=== PATIENT | male | born 1975 | race African-American/Black ===

== ENCOUNTER 2016-11-11 10:31 | Inpatient (IN) | payer OTHER ==
[2016-11-11 11:53] VITALS: BMI 24.3
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
[2016-11-11] MEDS ORDERED: chlordiazePOXIDE HCL 25 MG CAPSULE PO ONE (15:43)
[2016-11-11] MEDS ORDERED: guaiFENesin/D-METHORPHAN HB 10 ML UNIT-DOSE CUPS PO PRN (15:43)
[2016-11-11] MEDS ORDERED: ACETAMINOPHEN 325 MG TABLET (FP) PO PRN (15:43)
[2016-11-11] MEDS ORDERED: hydrOXYzine PAMOATE 50 MG CAPSULE (FP) PO PRN (15:43)
[2016-11-11] MEDS ORDERED: LOPERAMIDE HCL 2 MG CAPSULE PO PRN (15:43)
[2016-11-11] MEDS ORDERED: MAG HYDROX/AL HYDROX/SIMETH 30 ML UNIT-DOSE CUP PO PRN (15:43)
[2016-11-11] MEDS ORDERED: P-EPHED 60MG/TRIPROLIDI 2.5MG TABLET PO PRN (15:43)
[2016-11-11] MEDS ORDERED: diphenhydrAMINE HCL 50 MG CAPSULE PO PRN (15:43)
[2016-11-11] MEDS ORDERED: MENTHOL/PHENOL 1 EACH UD MM PRN (15:43)
[2016-11-11] MEDS ORDERED: MAGNESIUM CITRATE 300 ML BOTTLE PO PRN (15:43)
[2016-11-11] MEDS ORDERED: MAGNESIUM HYDROX 2400MG/30ML ORAL SUSPENSION 30 ML CUP PO PRN (15:43)
[2016-11-11] MEDS ORDERED: chlordiazePOXIDE HCL 25 MG CAPSULE PO PRN (15:43)
[2016-11-11] MEDS ORDERED: IBUPROFEN 400 MG TABLET (FP) PO PRN (15:43)
[2016-11-11] MEDS: chlordiazePOXIDE HCL 25 MG CAPSULE PO SCH ×2 (17:29→22:35)
[2016-11-11 18:55] LABS: URINE APPEARANCE CLEAR; URINE BILIRUBIN NEGATIVE (NEGATIVE); URINE BLOOD NEGATIVE (NEGATIVE); URINE COLOR YELLOW; URINE GLUCOSE (UA) NEGATIVE (NEGATIVE); URINE KETONE NEGATIVE (NEGATIVE); URINE LEUK ESTERASE NEGATIVE (NEGATIVE); URINE NITRITE NEGATIVE (NEGATIVE); URINE UROBILINOGEN NEGATIVE E.U./dl (0.2-1.0)
[2016-11-11 19:11] LABS: URINE PROTEIN 2+ (NEGATIVE)
[2016-11-11 19:14] LABS: URINE MUCUS RARE; URINE RBC 1 /hpf (0-3); URINE WBC 1 /hpf (3-5)
[2016-11-11] MEDS: THIAMINE HCL 100 MG TABLET (FP) PO SCH (22:35)
[2016-11-12] MEDS: chlordiazePOXIDE HCL 25 MG CAPSULE PO SCH ×4 (05:36→22:10)
[2016-11-12 10:09] LABS: MCH 29.6 pg (25.7-33.7); MCHC 32.9 g/dl (32.0-35.9); MEAN PLT VOLUME 9.2 fl (7.5-11.1); PLATELET COUNT 226 K/MM3 (134-434); RDW 14.2 % (11.9-15.9); WHITE BLOOD COUNT 6.1 K/mm3 (4.0-10.0)
[2016-11-12] MEDS: PRENATAL VITAMINS W/ FOLIC ACID TABLET (FP) PO SCH (10:59)
[2016-11-12 11:23] LABS: ALBUMIN 4.2 g/dl (3.4-5.0); ALK PHOS 80 U/L (45-117); ANION GAP 8 (8-16); BILIRUBIN,TOTAL 0.4 mg/dL (0.2-1.0); CALCIUM 9.4 mg/dL (8.5-10.1); CO2 30 mmol/L (21-32); COCKROFT - GAULT 83.99; CREATININE 1.2 mg/dL (0.7-1.3); GLUCOSE,RANDOM 84 mg/dL (74-106); SGOT/AST 21 U/L (15-37); SGPT/ALT 22 U/L (12-78); TOT PROT 8.2 g/dl (6.4-8.2)
--- NOTE | 2016-11-12 11:39 | PN ---
[facility] CIWA - CIWA Score Nausea/Vomitin Muscle Tremors: 3 Anxiety: 3 Agitation: 2 Paroxysmal Sweats: 1-Minimal Palms Moist Orientation: 0-Oriented Tacttile Disturbances: 1-Very Mild Itch/Numbness Auditory Disturbances: 1-Very Mild Visual Disturbances: 1-Very Mild Sensitivity Headache: 2-Mild CIWA-Ar Total Score: 17 S Progress Note (SOAP) Subjective: ALERT,IRRITABLE,ANXIOUS,INTERRUPTED SLEEP,TREMOR Objective: 11/12/16 11:37 Vital Signs Temperature 98.6 F 11/12/16 10:40 Pulse Rate 90 11/12/16 10:40 Respiratory Rate 20 11/12/16 10:40 Blood Pressure 146/87 11/12/16 10:40 O2 Sat by Pulse Oximetry (%) EKG NSR WITH SINUS ARRHYTHMIA Laboratory Last Values WBC 6.1 K/mm3 (4.0-10.0) 11/12/16 06:00 RBC 4.88 M/mm3 (4.00-5.60) 11/12/16 06:00 Hgb 14.5 GM/dL (11.7-16.9) 11/12/16 06:00 Hct 43.9 % (35.4-49) 11/12/16 06:00 MCV 90.0 fl (80-96) 11/12/16 06:00 MCHC 32.9 g/dl (32.0-35.9) 11/12/16 06:00 RDW 14.2 % (11.9-15.9) 11/12/16 06:00 Plt Count 226 K/MM3 (134-434) 11/12/16 06:00 MPV 9.2 fl (7.5-11.1) 11/12/16 06:00 Sodium 140 mmol/L (136-145) 11/12/16 06:00 Potassium 4.2 mmol/L (3.5-5.1) 11/12/16 06:00 Chloride 102 mmol/L (98-107) 11/12/16 06:00 Carbon Dioxide 30 mmol/L (21-32) 11/12/16 06:00 Anion Gap 8 (8-16) 11/12/16 06:00 BUN 13 mg/dL (7-18) 11/12/16 06:00 Creatinine 1.2 mg/dL (0.7-1.3) 11/12/16 06:00 Creat Clearance w eGFR > 60 (>60) 11/12/16 06:00 Random Glucose 84 mg/dL (74-106) 11/12/16 06:00 Calcium 9.4 mg/dL (8.5-10.1) 11/12/16 06:00 Total Bilirubin 0.4 mg/dL (0.2-1.0) 11/12/16 06:00 AST 21 U/L (15-37) 11/12/16 06:00 ALT 22 U/L (12-78) 11/12/16 06:00 Alkaline Phosphatase 80 U/L (45-117) 11/12/16 06:00 Total Protein 8.2 g/dl (6.4-8.2) 11/12/16 06:00 Albumin 4.2 g/dl (3.4-5.0) 11/12/16 06:00 Urine Color Yellow 11/11/16 17:51 Urine Appearance Clear 11/11/16 17:51 Urine pH 5.0 (5.0-8.0) 11/11/16 17:51 Urine Protein 2+ (NEGATIVE) H 11/11/16 17:51 Urine Glucose (UA) Negative (NEGATIVE) 11/11/16 17:51 Urine Ketones Negative (NEGATIVE) 11/11/16 17:51 Urine Blood Negative (NEGATIVE) 11/11/16 17:51 Urine Nitrite Negative (NEGATIVE) 11/11/16 17:51 Urine Bilirubin Negative (NEGATIVE) 11/11/16 17:51 Urine Urobilinogen Negative E.U./dl (0.2-1.0) 11/11/16 17:51 Ur Leukocyte Esterase Negative (NEGATIVE) 11/11/16 17:51 Urine RBC 1 /hpf (0-3) 11/11/16 17:51 Urine WBC 1 /hpf (3-5) 11/11/16 17:51 Ur Epithelial Cells Rare /hpf (FEW) 11/11/16 17:51 Urine Mucus Rare 11/11/16 17:51 RPR Titer Nonreactive (NONREACTIVE) 11/12/16 06:00 Assessment: 11/12/16 11:39 WITHDRAWAL SYMPTOM Plan: CONTINUE DETOX
--- NOTE | 2016-11-12 12:01 | EKG ---
Test Reason : Blood Pressure : / mmHG Vent. Rate : 070 BPM Atrial Rate : 070 BPM P-R Int : 156 ms QRS Dur : 088 ms QT Int : 384 ms P-R-T Axes : 050 059 050 degrees QTc Int : 414 ms NORMAL SINUS RHYTHM WITH SINUS ARRHYTHMIA NORMAL ECG NO PREVIOUS ECGS AVAILABLE Confirmed by MANDY GONZALEZ, REDD ([id number]) on 11/12/2016 12:00:52 PM Referred By: JENNIFER Poe Confirmed By:REDD GALVAN MD
[2016-11-12] MEDS: THIAMINE HCL 100 MG TABLET (FP) PO SCH (22:10)
[2016-11-13] MEDS: chlordiazePOXIDE HCL 25 MG CAPSULE PO SCH ×2 (05:31→10:51)
[2016-11-13] MEDS: PRENATAL VITAMINS W/ FOLIC ACID TABLET (FP) PO SCH (10:50)
--- NOTE | 2016-11-13 11:54 | PN ---
[facility] CIWA - CIWA Score Nausea/Vomitin Muscle Tremors: 3 Anxiety: 2 Agitation: 2 Paroxysmal Sweats: 1-Minimal Palms Moist Orientation: 0-Oriented Tacttile Disturbances: 1-Very Mild Itch/Numbness Auditory Disturbances: 1-Very Mild Visual Disturbances: 1-Very Mild Sensitivity Headache: 2-Mild CIWA-Ar Total Score: 16 S Progress Note (SOAP) Subjective: ALERT,IRRITABLE,ANXIOUS,INTERRUPTED SLEEP,TREMOR Objective: 11/13/16 11:53 Vital Signs Temperature 97.7 F 11/13/16 06:00 Pulse Rate 82 11/13/16 10:05 Respiratory Rate 18 11/13/16 10:05 Blood Pressure 152/91 11/13/16 10:05 O2 Sat by Pulse Oximetry (%) Laboratory Last Values WBC 6.1 K/mm3 (4.0-10.0) 11/12/16 06:00 RBC 4.88 M/mm3 (4.00-5.60) 11/12/16 06:00 Hgb 14.5 GM/dL (11.7-16.9) 11/12/16 06:00 Hct 43.9 % (35.4-49) 11/12/16 06:00 MCV 90.0 fl (80-96) 11/12/16 06:00 MCHC 32.9 g/dl (32.0-35.9) 11/12/16 06:00 RDW 14.2 % (11.9-15.9) 11/12/16 06:00 Plt Count 226 K/MM3 (134-434) 11/12/16 06:00 MPV 9.2 fl (7.5-11.1) 11/12/16 06:00 Sodium 140 mmol/L (136-145) 11/12/16 06:00 Potassium 4.2 mmol/L (3.5-5.1) 11/12/16 06:00 Chloride 102 mmol/L (98-107) 11/12/16 06:00 Carbon Dioxide 30 mmol/L (21-32) 11/12/16 06:00 Anion Gap 8 (8-16) 11/12/16 06:00 BUN 13 mg/dL (7-18) 11/12/16 06:00 Creatinine 1.2 mg/dL (0.7-1.3) 11/12/16 06:00 Creat Clearance w eGFR > 60 (>60) 11/12/16 06:00 Random Glucose 84 mg/dL (74-106) 11/12/16 06:00 Calcium 9.4 mg/dL (8.5-10.1) 11/12/16 06:00 Total Bilirubin 0.4 mg/dL (0.2-1.0) 11/12/16 06:00 AST 21 U/L (15-37) 11/12/16 06:00 ALT 22 U/L (12-78) 11/12/16 06:00 Alkaline Phosphatase 80 U/L (45-117) 11/12/16 06:00 Total Protein 8.2 g/dl (6.4-8.2) 11/12/16 06:00 Albumin 4.2 g/dl (3.4-5.0) 11/12/16 06:00 Urine Color Yellow 11/11/16 17:51 Urine Appearance Clear 11/11/16 17:51 Urine pH 5.0 (5.0-8.0) 11/11/16 17:51 Ur Specific [place] >= 1.030 (1.005-1.025) H 11/11/16 17:51 Urine Protein 2+ (NEGATIVE) H 11/11/16 17:51 Urine Glucose (UA) Negative (NEGATIVE) 11/11/16 17:51 Urine Ketones Negative (NEGATIVE) 11/11/16 17:51 Urine Blood Negative (NEGATIVE) 11/11/16 17:51 Urine Nitrite Negative (NEGATIVE) 11/11/16 17:51 Urine Bilirubin Negative (NEGATIVE) 11/11/16 17:51 Urine Urobilinogen Negative E.U./dl (0.2-1.0) 11/11/16 17:51 Ur Leukocyte Esterase Negative (NEGATIVE) 11/11/16 17:51 Urine RBC 1 /hpf (0-3) 11/11/16 17:51 Urine WBC 1 /hpf (3-5) 11/11/16 17:51 Ur Epithelial Cells Rare /hpf (FEW) 11/11/16 17:51 Urine Mucus Rare 11/11/16 17:51 RPR Titer Nonreactive (NONREACTIVE) 11/12/16 06:00 Assessment: 11/13/16 11:53 WITHDRAWAL SYMPTOM Plan: CONTINUE DETOX
[2016-11-13] MEDS: chlordiazePOXIDE 5 MG CAPSULE PO SCH ×2 (20:32→22:10)
[2016-11-13] MEDS: THIAMINE HCL 100 MG TABLET (FP) PO SCH (22:10)
[2016-11-14] MEDS: chlordiazePOXIDE 5 MG CAPSULE PO SCH (07:54)
[2016-11-14 09:41] VITALS: BP 119/91; PULSE 110; TEMP 97.8
[2016-11-14] MEDS: PRENATAL VITAMINS W/ FOLIC ACID TABLET (FP) PO SCH (10:52)
--- NOTE | 2016-11-14 11:05 | PN ---
S Progress Note (SOAP) Subjective: ALERT,INTERRUPTED SLEEP Objective: 11/14/16 11:04 Vital Signs Temperature 97.8 F 11/14/16 09:40 Pulse Rate 110 H 11/14/16 09:40 Respiratory Rate 18 11/14/16 09:40 Blood Pressure 119/91 11/14/16 09:40 O2 Sat by Pulse Oximetry (%) Assessment: 11/14/16 11:05 WITHDRAWAL SYMPTOM Plan: CONTINUE DETOX,DISCHARGE IN AM
--- NOTE | 2016-11-14 11:19 | PN ---
S Progress Note Note: ADDENDUM PATIENT IS STABLE,NO WITHDRAWAL SYMPTOM,STABLE FOR DISCHARGE ,FOLLOW UP WITH AFTER CARE PROGRAM ARRANGEMENT ,SEEN BY COUNSELOR
--- NOTE | 2016-11-14 11:21 | DS ---
[facility] Detox Discharge Summary Admission Date: 11/11/16 Discharge Date: 11/14/16 - History Present History: Alcohol Dependence Additional Comments: FOLLOW UP WITH AFTER CARE PROGRAM ARRANGEMENT - Physical Exam Results Vital Signs: Vital Signs Temperature 97.8 F 11/14/16 09:40 Pulse Rate 110 H 11/14/16 09:40 Respiratory Rate 18 11/14/16 09:40 Blood Pressure 119/91 11/14/16 09:40 O2 Sat by Pulse Oximetry (%) Pertinent Admission Physical Exam Findings: WITHDRAWAL SYMPTOM - Treatment Hospital Course: Detox Protocol Followed, Detoxed Safely, Responded well, Discharged Condition Good Patient has Accepted a Rehab Referral to: DECLINED - Medication Discharge Medications: Ambulatory Orders NK [No Known Home Medication] 11/11/16 - Diagnosis (1) Alcohol dependence with uncomplicated withdrawal Current Visit: Yes Status: Chronic - AMA Did Patient Leave Against Medical Advice: No
[2016-11-14] MEDS ORDERED: chlordiazePOXIDE HCL 10 MG CAPSULE PO SCH (17:00)
== END 2016-11-14 11:31 | disposition home or self-care (01) | DRG 897 ==
LOC: YASAS 10:31 → Y6N 15:46
PROVIDERS: ADMIT Internal Medicine; ATTEND Internal Medicine
PROC: HZ2ZZZZ Detoxification Services for Substance Abuse Treatment (ICD-10-PCS; principal; 2016-11-14)
DX: F10.230 Alcohol dependence with withdrawal, uncomplicated (principal)
CPT/HCPCS: 36415; 80053; 81003; 81015; 85027; 86593; 93005; 93010

== ENCOUNTER 2017-01-01 07:51 | Emergency (ER) | payer OTHER ==
[2017-01-01 07:57] VITALS: BP 150/104; PULSE 87; TEMP 99.1; BMI 23.6
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
[2017-01-01] MEDS ORDERED: IBUPROFEN 400 MG TABLET (FP) PO ONE ×2 (09:05→09:10)
== END 2017-01-01 09:20 | disposition home or self-care (01) ==
LOC: FER 07:51
DX: S83.92XA Sprain of unspecified site of left knee, initial encounter (principal); V09.20XA Pedestrian injured in traffic accident involving unspecified motor vehicles, initial encounter; Y93.89 Activity, other specified; Y92.410 Unspecified street and highway as the place of occurrence of the external cause; Z87.891 Personal history of nicotine dependence
CPT/HCPCS: 73560-TC-LT; 99281-25

== ENCOUNTER 2017-01-22 06:05 | Day surgery (SDC) | payer OTHER ==
[2017-01-20 10:55] VITALS: BMI 22.8
--- NOTE | 2017-01-22 09:03 | HP ---
Satellite [facility] - Chief Complaint Chief Complaint: left knee pain/instability - Past Medical History Allergies/Adverse Reactions: Allergies Allergy/AdvReac Type Severity Reaction Status Date / Time No Known Allergies Allergy Verified 01/20/17 10:49 - Current Medications Current Medications: Home Medications Medication Instructions Recorded Oxycodone HCl/Acetaminophen 1 - 2 tab PO Q6H #50 tab MDD 8 01/22/17 [Percocet 5-325 mg Tablet -] Satellite Physical Exam - Physical Examination Vital Signs: Vital Signs Period Temp Pulse Resp BP Sys/K[place]ns Pulse Ox Last 24 Hr 98.2 F 92 20 109/79 100 General Appearance: Well Nourished, Well Developed, Alert & Oriented x3 ENT: Clear Lung: Normal air movement Heart: Regular rate & rhythm Extremities: Other (left knee- + swelling, + ttp, + vince, + ant draw, + pivot , nvi MRI + acl and mmt, lmt) Neurological: Intact, Alert, Oriented Satellite Impression/Plan - Impression/Plan Impression: left knee internal derangement Operative Procedure: left knee arthrscopy ACL reconstruction with allograft, PMM , PLM Date to be Performed: 01/22/17
[2017-01-22] MEDS ORDERED: DEXAMETHASONE SOD PHOSPHATE/PF 10 MG/ML SDV ONE (09:13)
[2017-01-22] MEDS ORDERED: BUPIVACAINE HCL/PF 0.25% (2.5MG/ML) 10 ML VIAL ONE (09:13)
[2017-01-22] MEDS ORDERED: BUPIVACAINE HCL/PF 0.5% (5MG/ML) 10 ML VIAL ONE (09:13)
[2017-01-22] MEDS ORDERED: MIDAZOLAM HCL 2 MG/2 ML SINGLE DOSE VIAL ONE ×2 (09:15)
[2017-01-22] MEDS ORDERED: ceFAZolin SODIUM 1 GM VIAL ONE ×2 (10:16→13:53)
[2017-01-22] MEDS ORDERED: ceFAZolin SODIUM 1 GM VIAL IVPB ONE ×2 (10:20→15:50)
[2017-01-22] MEDS ORDERED: DEXAMETHASONE SOD PHOSPHATE 4 MG/1 ML VIAL ONE (10:40)
[2017-01-22] MEDS ORDERED: LACTATED RINGERS SOLUTION 1,000 ML IV SCH (11:00)
[2017-01-22] MEDS ORDERED: ONDANSETRON 4 MG/2 ML VIAL IVPUSH PRN (11:00)
[2017-01-22] MEDS ORDERED: oxyCODONE HCL 5 MG TABLET PO PRN (11:00)
--- NOTE | 2017-01-22 11:22 | OP ---
Operative Note - Note: Operative Date: 01/22/17 ([facility]) Pre-Operative Diagnosis: left knee internal derangement Operation: left knee arthroscopy with ACL reconstruction using allograft, PMM, PLM, debridement chondroplasty [facility] [place]: arthrex graftlink Post-Operative Diagnosis: Same as Pre-op Surgeon: Chance Bauer Semiautomatic Taper Operator: Ramy Dubon Anesthesiologist/APPLICATIONS CONSULTANT: India Evans Anesthesia: Spinal, Local Specimens Removed: shavings Estimated Blood Loss (mls): 10 Operative Report Dictated: Yes
[2017-01-22 11:49] VITALS: TEMP 97.8
[2017-01-22] MEDS ORDERED: CEFAZOLIN 1 GM in DEXTROSE 5%-WATER - 50 ML IVPB ONE (12:00)
[2017-01-22] MEDS ORDERED: oxyCODONE HCL 5 MG TABLET ONE (14:27)
[2017-01-22] MEDS ORDERED: oxyCODONE HCL 5 MG TABLET PO ONE (14:33)
[2017-01-22 18:54] VITALS: BP 146/85; PULSE 73
--- NOTE | 2017-01-23 08:20 | OP ---
DATE OF OPERATION: 01/22/2017 PREOPERATIVE DIAGNOSIS: Left anterior cruciate ligament tear. POSTOPERATIVE DIAGNOSIS: Left anterior cruciate ligament tear, plus lateral meniscus tear, medial meniscus tear, and degenerative joint disease medial femoral condyle, medial tibial plateau. lateral femoral condyle . SURGICAL PROCEDURE: Left anterior cruciate ligament reconstruction with GraftLink, partial medial and lateral meniscectomies, and chondroplasty, medial femoral condyle, medial tibial plateau, and lateral femoral condyle. SURGICAL ATTENDING: Chance Bauer M.D. MICA PLATE LAYER: HUGH Vallecillo ANESTHESIA: Spinal and regional. CLOSURE: A GraftLink with appropriate buttons for fixation, 3-0 nylon for skin. ESTIMATED BLOOD LOSS: Negligible. COMPLICATIONS: None. CONDITION: To recovery room in stable condition. DESCRIPTION OF OPERATIVE PROCEDURE: The patient was taken to the operating room on January 22, 2017. Spinal and region anesthesia were administered by the anesthesiologist. IV Kefzol was given prophylactically prior to the case. Left lower extremity was prepped and draped in the usual sterile fashion. The superolateral and mediolateral and infrapatellar portal sites were made with a 15 blade followed by a blunt trocar. The scope was placed lateral infrapatellar suprapatellar pouch. Pouch was visualized to be clean. The medial and lateral gutters were visualized to be clean. The undersurface of the patella and trochlea were visualized to be intact. With valgus stress on the knee, the medial compartment was entered and medial meniscus was visualized and probed and found to have a flap tear of its posterior horn. This was debrided back to smooth stable meniscal tissues with a meniscal biter and an arthroscopic shaver. Running the medial femoral condyle, we found a large grade 4 lesion, and it was articular cartilage surround the lesion. It was debrided using the shaver. The medial tibial plateau was found to be basically intact. With valgus stress on the knee, the lateral compartment was entered. Lateral meniscus had an extensive complex tear extending from its mid portion all the way posteriorly. It was debrided back to smooth, stable meniscal tissues with meniscal biter and arthroscopic shaver. The lateral femoral condyle was run and found to have found a large grade 4 lesion, as well, with some loose articular cartilage and some loose bodies flaking off the condyle. These were debrided using the shaver. At 90 degrees, the PCL was found to be intact. The ACL was found to have a large stump anteriorly. This was debrided using the shaver. A notchplasty was then performed using the shaver and the ArthroCare device until the appropriate width and height of the notch was obtained. The GraftLink was prepared on the back table with the appropriate button and markings. Using the [id number] guide and a FlipCutter, a retrograde femoral tunnel was made 10 mm in diameter in the appropriate aspect of the posterior notch. Passing through this tunnel, we passed a FiberWire suture and pulled through the anteromedial portal for later use as a shuttle suture. The same was then performed on the tibial side just anterior to the PCL. A 10-mm FlipCutter was used to retrograde the femoral tunnel, leaving the lateral outside cortex intact. Passing up through this tunnel was a FiberWire suture. Both sutures were delivered to the anteromedial portal. They were then used to shuttle the graft into the knee with pulling the femoral side up the femoral tunnel until the button caught on the lateral cortex. The toggle sutures were then used to pull the graft into the femoral tunnel up to the appropriate interval. Shuttle sutures were then used to pull the tibial side of the graft into the tibial tunnel exiting distally. Button was deployed, and the toggle sutures were then used to fixate the graft there, as well. The knee was taken through a range of motion, found to have good stability, negative Christopher, anterior/posterior drawer. Sutures were cut snug. Portals were closed with 3-0 nylon suture. Sterile pressure dressing was applied. Patient was awakened from anesthesia and transferred to recovery room in stable condition. No complications. Estimated blood loss was negligible. Andre [id number]
--- NOTE | 2017-01-23 14:24 | PATH ---
Surgical Pathology Report Patient Name: NINA RAMIREZ Med. Rec. #: [id number] /Age/Gender: 1975 (Age: 41) / M Account: [id number] Location: [facility] Taken: 01/22/2017 Received: 01/22/2017 Reported: 01/23/2017 Physicians: Chance Bauer M.D. Specimen(s) Received LEFT KNEE SHAVINGS Clinical History Left ACL tear Final Diagnosis SOFT TISSUE, LEFT KNEE, ARTHROSCOPIC SHAVINGS: SYNOVIUM AND FIBROCARTILAGE WITH MYXOHYALINE DEGENERATION. FRAGMENTS OF UNREMARKABLE BONE. Electronically Signed Michael Callaway M.D. Gross Description Received in formalin, labeled "left knee shavings" is a 6.3 x 5.0 x 0.8 cm aggregate of m[place]o-yellow soft tissue fragments. A patient financial representative portion is submitted in one cassette. /01/22/201701/22/2017
== END 2017-01-22 18:10 | disposition home or self-care (01) ==
LOC: JASU-SURG 06:05
PROVIDERS: ATTEND Orthopaedic Surgery
PROC: 0SBD4ZZ Excision of Left Knee Joint, Percutaneous Endoscopic Approach (ICD-10-PCS; 2017-01-22)
PROC: 0SBD4ZZ Excision of Left Knee Joint, Percutaneous Endoscopic Approach (ICD-10-PCS; 2017-01-22)
PROC: 0SBD4ZZ Excision of Left Knee Joint, Percutaneous Endoscopic Approach (ICD-10-PCS; 2017-01-22)
PROC: 0MQP4ZZ Repair Left Knee Bursa and Ligament, Percutaneous Endoscopic Approach (ICD-10-PCS; principal; 2017-01-22 10:15)
DX: S83.512A Sprain of anterior cruciate ligament of left knee, initial encounter (principal); S83.282A Other tear of lateral meniscus, current injury, left knee, initial encounter; S83.242A Other tear of medial meniscus, current injury, left knee, initial encounter; M17.12 Unilateral primary osteoarthritis, left knee; X58.XXXA Exposure to other specified factors, initial encounter; Y93.9 Activity, unspecified; Y92.9 Unspecified place or not applicable
CPT/HCPCS: 29880; 29888; G0289; 88304-TC; 94760

== ENCOUNTER 2017-07-23 05:02 | Day surgery (SDC) | payer OTHER ==
[2017-07-22 11:53] VITALS: BMI 24.3
--- NOTE | 2017-07-23 09:16 | HP ---
Satellite [facility] - Chief Complaint Chief Complaint: left knee pain, stiffness - Past Medical History Allergies/Adverse Reactions: Allergies Allergy/AdvReac Type Severity Reaction Status Date / Time No Known Allergies Allergy Verified 07/22/17 11:54 - Current Medications Current Medications: Home Medications Medication Instructions Recorded Oxycodone HCl/Acetaminophen 1 tab PO Q6H #20 tab MDD 4 07/23/17 [Percocet 5-325 mg Tablet -] Satellite Physical Exam - Physical Examination General Appearance: Well Nourished, Well Developed, Alert & Oriented x3 ENT: Clear Lung: Normal air movement Heart: Regular rate & rhythm Neurological: Intact, Alert, Oriented Satellite Impression/Plan - Impression/Plan Impression: left knee arthrofibrosis Operative Procedure: left knee GALO, possible arthroscopy Date to be Performed: 07/23/17
[2017-07-23] MEDS ORDERED: MIDAZOLAM HCL 2 MG/2 ML SINGLE DOSE VIAL ONE (09:20)
[2017-07-23] MEDS ORDERED: PROPOFOL 20 ML ONE (09:20)
[2017-07-23] MEDS ORDERED: BUPIVACAINE HCL/PF 0.5% (5MG/ML) 10 ML VIAL ONE (09:25)
[2017-07-23] MEDS ORDERED: LIDOCAINE 1%/EPI 1:100000 (20 ML MULTI DOSE VIAL) ONE (09:28)
[2017-07-23] MEDS ORDERED: DEXAMETHASONE SOD PHOSPHATE 4 MG/1 ML VIAL ONE (12:05)
[2017-07-23] MEDS ORDERED: ceFAZolin SODIUM 1 GM VIAL ONE (12:12)
[2017-07-23] MEDS ORDERED: LIDOCAINE 1%/EPI 1:100000 (20 ML MULTI DOSE VIAL) IJ ONE (12:25)
[2017-07-23] MEDS ORDERED: BUPIVACAINE HCL/PF 0.5% (5MG/ML) 10 ML VIAL IJ ONE (12:25)
[2017-07-23] MEDS ORDERED: ceFAZolin SODIUM 1 GM VIAL IVPB ONE (12:30)
--- NOTE | 2017-07-23 12:41 | OP ---
Operative Note - Note: Operative Date: 07/23/17 ([facility]) Pre-Operative Diagnosis: left knee arthrofibrosis Operation: left knee arthroscopy, GALO Post-Operative Diagnosis: Same as Pre-op Surgeon: Chance Bauer Anesthesiologist/WORKFLOW DEVELOPER: Mike Spicer Anesthesia: General, Local Specimens Removed: shavings Estimated Blood Loss (mls): 5 Operative Report Dictated: Yes
[2017-07-23] MEDS ORDERED: oxyCODONE HCL 5 MG TABLET PO PRN ×2 (13:47)
[2017-07-23] MEDS ORDERED: ONDANSETRON 4 MG/2 ML VIAL IVPUSH PRN (13:47)
[2017-07-23] MEDS ORDERED: LACTATED RINGERS SOLUTION 1,000 ML IV SCH (14:00)
[2017-07-23 14:57] VITALS: TEMP 98.6
[2017-07-23 15:49] VITALS: BP 135/88; PULSE 78
--- NOTE | 2017-07-24 07:43 | OP ---
DATE OF OPERATION: 07/23/2017 PREOPERATIVE DIAGNOSIS: Arthrofibrosis status post anterior cruciate ligament reconstruction, left knee. POSTOPERATIVE DIAGNOSIS: Arthrofibrosis status post anterior cruciate ligament reconstruction, left knee. PROCEDURE: Manipulation under anesthesia and arthroscopic debridement of left knee. SURGICAL ATTENDING: Chance Bauer MD ANESTHESIA: General with LMA. CLOSURE: 4-0 nylon COMPLICATIONS: None. CONDITION: To recovery room in stable condition. DESCRIPTION OF PROCEDURE: Patient taken to the operating room on July 23, 2017. General anesthesia with LMA was administered by the anesthesiologist. A manipulation under anesthesia was performed. Prior to manipulation, patient's range of motion was about 2 degrees to about 70 degrees. Post manipulation was able to go from 2 degrees to about 85, but no further. I therefore elected to undergo an arthroscopic procedure with the arthroscopic debridement of the knee. The 2 infrapatellar portals, both medial and lateral, were made with 15-blade, blunt trocar. Scope was placed in the lateral infrapatellar portal into the suprapatellar pouch. The trocar was used to free up the knee adhesions in the pouch as well as in the 2 gutters as well. The medial portal was used for the shaver. Arthrofibrosis inside the knee was debrided using the shaver. The ACL graft looked in excellent position. No scar tissue in the notch. The medial and lateral menisci also looked in good position. 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 Any fibrous tissue that was seen was debrided using the scope. Manipulation was then performed. We were able to get from 0 to approximately 100 degrees, but no further. We elected to at this time then stop and not try risking further manipulation as fear of fracturing the femur. As patient got greater than 90 degrees, we felt that that was acceptable. The fluid was drained from the knee. The portals were closed using 3-0 nylon. A sterile pressure dressing was placed, the patient awakened from anesthesia and transferred to recovery room in stable condition. No complications. ESTIMATED BLOOD LOSS: Negligible. Andre [id number]
--- NOTE | 2017-07-24 14:09 | PATH ---
Surgical Pathology Report Patient Name: NINA RAMIREZ [facility]. Rec. #: [id number] /Age/Gender: 1975 (Age: 42) / M Account: [id number] Location: [facility] Taken: 07/23/2017 Received: 07/23/2017 Reported: 07/24/2017 Physicians: Chance Bauer M.D. Specimen(s) Received LEFT KNEE SHAVINGS Clinical History Preoperative diagnosis: Arthrofibrosis Final Diagnosis KNEE SHAVINGS, LEFT, ARTHROSCOPIC DEBRIDEMENT: BENIGN FIBROCARTILAGINOUS TISSUE AND SYNOVIUM. Electronically Signed Lucy Santamaria M.D. Gross Description Received in formalin, labeled "left knee shavings," is a 4.0 x 3.1 x 0.3 cm. aggregate of [place]o-yellow soft tissue fragments. A used equipment sales representative portion is submitted in one cassette. /07/23/201707/23/2017
== END 2017-07-23 16:00 | disposition home or self-care (01) ==
LOC: JASU-SURG 05:02
PROVIDERS: ATTEND Orthopaedic Surgery
PROC: 0SND4ZZ Release Left Knee Joint, Percutaneous Endoscopic Approach (ICD-10-PCS; principal; 2017-07-23 09:30)
PROC: 0SNDXZZ Release Left Knee Joint, External Approach (ICD-10-PCS; 2017-07-23 09:30)
DX: M24.662 Ankylosis, left knee (principal); M23.8X2 Other internal derangements of left knee
CPT/HCPCS: 88304-TC